=== PATIENT | female | born 1990 | race Hispanic/Latino ===

== ENCOUNTER 2019-09-14 10:43 | Outpatient (CLI) | payer MEDICAID ==
--- NOTE | 2019-09-14 11:50 | ULT ---
Complete obstetrical ultrasound INDICATION: Evaluate anatomy TECHNIQUE: Grayscale, M-mode Doppler and Doppler images were obtained of the abdomen and pelvis to ev aluate the patient's known . COMPARISON: None. FINDINGS: Number of gestations: Single. Presentation: Cephalic. Placental location: Anterior Previa: No evidence for previa. Cervical length: 4.74 cm OLMAN: Not recorded.. Within normal limits. heart rate: 135 bpm. Biparietal diameter: 4.60cm, 20 weeks 0 days, Not calculated.. Head circumference: 16.82 cm, 19 weeks and 4 days, Not calculated. Abdominal circumference: 13.98 cm, 19 weeks and 3 days, Not calculated. Femoral length: 2.96cm, 19 weeks and 1 day, Not calculated. Estimated weight: 285 g +/- 42g 0 lbs. 10 oz. +/- 1 ounce, 4th percentile SURVEY: head: Normal appearing. Cerebellum: Normal appearing. Cisterna magna: Normal appearing. Lateral ventricles: Normal appearing. 4 chamber heart: Normal appearing.. Stomach: Normal appearing. Kidneys: Normal appearing. Cord insertion: Normal appearing. Bladder: Not well seen Spine: Normal appearing. Lips and nose: Normal appearing. Extremities: Normal appearing. Three-vessel CORD: Normal appearing. The average gestational age by ultrasound is 19 weeks and 4 dayswith estimated due date of January [id number]. The estimated dates by clinical data is 20 weeks and 4 dayswith estimated due date of January 27 0. IMPRESSION: 1. Single live intrauterine gestation with size and dates as above. 2. Slightly low estimated weight for gestational age. Continued follow-up is recommended. 3. The bladder was not well seen. A follow-up obstetrical ultrasound in one to 2 weeks is recommended to complete survey.
== END 2019-09-14 10:44 | disposition home or self-care (01) ==
LOC: BICULT 10:43
PROVIDERS: ATTEND Family Medicine
DX: Z34.82 Encounter for supervision of other normal pregnancy, second trimester (principal); Z3A.20 20 weeks gestation of pregnancy
CPT/HCPCS: 76805

== ENCOUNTER 2020-01-28 11:48 | Outpatient (CLI) | payer OTHER ==
[2020-01-29 15:05] LABS: SARS-CoV-2 MS2 Positive; SARS-CoV-2 N Gene Negative; SARS-CoV-2 S Gene Negative; SARS-CoV-2 by NAA Not Detected (NotDetected); SARS-CoV-2 orf1ab Negative
== END 2020-01-28 11:49 | disposition home or self-care (01) ==
LOC: LABBT 11:48
PROVIDERS: ATTEND Family Medicine
DX: Z20.828 Contact with and (suspected) exposure to other viral communicable diseases (principal)
CPT/HCPCS: 87635; U0003

== ENCOUNTER 2020-01-31 19:30 | Inpatient (IN) | payer OTHER ==
[~2020-01-31 19:30] MED LIST: Bupivacaine 0.25% 10 ML VIAL ONE
[2020-01-31 22:13] VITALS: BMI 33.4
[2020-01-31] MEDS ORDERED: hydrALAZINE 20 MG/ML VIAL SLOW IVP PRN (22:14)
[2020-01-31] MEDS ORDERED: Butorphanol Tartrate 1 MG/ML VIAL SLOW IVP PRN (22:14)
[2020-01-31] MEDS ORDERED: Misoprostol 200 MCG TAB PR PRN (22:14)
[2020-01-31] MEDS ORDERED: Promethazine HCl 25 MG/ML VIAL IM PRN (22:14)
[2020-01-31] MEDS ORDERED: Ibuprofen 800 MG TAB PO PRN (22:14)
[2020-01-31] MEDS ORDERED: NS / Oxytocin 40 units/1000ml 1,000 ML IV PRN (22:14)
[2020-01-31] MEDS ORDERED: Diphenoxylate HCl/Atropine Tablet PO PRN (22:14)
[2020-01-31] MEDS ORDERED: Ondansetron PF 4 MG/2 ML Vial IVP PRN (22:14)
[2020-01-31] MEDS ORDERED: Carboprost 250 MCG/ML AMP IM PRN (22:14)
[2020-01-31] MEDS ORDERED: Lidocaine 1% (PF) 30 ML VIAL SC PRN (22:14)
[2020-01-31] MEDS ORDERED: Methylergonovine 0.2 MG/ML VIAL IM PRN (22:14)
[2020-01-31] MEDS ORDERED: HYDROcodone/Acetaminophen 5/325 mg Tablet PO PRN (22:14)
[2020-01-31] MEDS: Lactated Ringer's 1,000 ML IV SCH (22:20)
[2020-01-31] MEDS ORDERED: Penicillin G Potassium 5 MILL.UNITS in Sodium Chloride 0.9% 100 ML IVPB SCH (22:30)
[2020-01-31] MEDS ORDERED: NS w/ Oxytocin 10 units 500 ML IV SCH ×2 (22:30)
[2020-01-31] MEDS: Misoprostol 100 MCG TAB PO SCH (22:40)
[2020-01-31 23:01] LABS: Hemoglobin 14.6 g/dL (12.0-16.0); Mean Corpuscular HGB CONC 34.1 g/dL (32.0-36.0); Mean Corpuscular Hemoglobin 31.5 pg (27.0-31.0); Mean Corpuscular Volume 92.5 fL (78.0-98.0); Mean Platelet Volume 8.7 fL (7.4-10.4); Platelet Count 200 thou/uL (130-400); RBC Distribution Width 13.3 % (11.5-14.5); Red Blood Cell (RBC) Count 4.62 mill/uL (4.20-5.40); White Blood Cell (WBC) Count 8.5 thou/uL (4.8-10.8)
[2020-01-31 23:36] LABS: HBSAg Index 0.17 S/CO (0-0.99); Hep B Surf Ag Non-Reactive S/CO (NonReactive); Syphilis Antibody Nonreactive (Nonreactive); Syphilis Antibody Index 0.06 S/CO (<1.00 Non-Reactive)
[2020-02-01] MEDS: Misoprostol 100 MCG TAB PO SCH ×3 (02:00→11:19)
[2020-02-01] MEDS: Penicillin G 2.5 MILL.units 2.5 MILL.UNITS in Premix Bag 1 BAG IVPB SCH ×2 (03:12→19:14)
[2020-02-01] MEDS ORDERED: Fentanyl 4 mcg/Bup 0.1% Cadd 100 ML ONE (05:51)
[2020-02-01] MEDS: Lactated Ringer's 1,000 ML IV SCH (06:21)
[2020-02-01] MEDS ORDERED: NS / Oxytocin 40 units/1000ml 1,000 ML ONE (06:53)
[2020-02-01] MEDS ORDERED: Lidocaine 1% (PF) 30 ML VIAL ONE (06:53)
[2020-02-01] MEDS ORDERED: diphenhydrAMINE 50 MG/ML VIAL IVP PRN (07:05)
[2020-02-01] MEDS ORDERED: Promethazine HCl 25 MG/ML VIAL IM PRN (07:05)
[2020-02-01] MEDS ORDERED: Naloxone HCl 0.4 mg/ml Vial IVP PRN ×2 (07:05)
[2020-02-01] MEDS ORDERED: Ondansetron PF 4 MG/2 ML Vial IVP PRN ×2 (07:05→10:25)
[2020-02-01] MEDS ORDERED: Acetaminophen 325 MG TAB PO PRN (07:05)
[2020-02-01] MEDS ORDERED: Lactated Ringer's 500 ML IV PRN (07:05)
[2020-02-01] MEDS ORDERED: EPHEDRINE 25 MG/5 ML SYRINGE SLOW IVP PRN (07:05)
[2020-02-01] MEDS ORDERED: NS w/ Oxytocin 10 units 0 ML ONE (07:13)
[2020-02-01] MEDS ORDERED: Communication Order-Pharmacy FS SCH (07:15)
[2020-02-01] MEDS ORDERED: Fentanyl 4 mcg/Bupivacaine 0.1% Cassette 100 ML EPIDURAL SCH (07:15)
[2020-02-01] MEDS ORDERED: NS / Oxytocin 40 units/1000ml 1,000 ML IV SCH (10:25)
[2020-02-01] MEDS ORDERED: hydrALAZINE 20 MG/ML VIAL SLOW IVP PRN (10:25)
[2020-02-01] MEDS ORDERED: diphenhydrAMINE 25 MG CAP PO PRN (10:25)
[2020-02-01] MEDS ORDERED: Benzocaine-Menthol 82.5 ML CAN TOP PRN (10:25)
[2020-02-01] MEDS ORDERED: Bisacodyl 10 MG SUPP PR PRN (10:25)
[2020-02-01] MEDS ORDERED: HYDROcodone/Acetaminophen 5/325 mg Tablet PO PRN (10:25)
[2020-02-01] MEDS ORDERED: Lanolin Ointment 7 GM TUBE TOP PRN (10:25)
[2020-02-01] MEDS ORDERED: Milk Of Magnesia 30 ML UDCUP PO PRN (10:25)
[2020-02-01] MEDS ORDERED: Ferrous Sulfate 325 MG TAB PO SCH (10:45)
[2020-02-01] MEDS ORDERED: Prenatal Vitamin 1 TAB PO SCH (11:00)
[2020-02-01] MEDS ORDERED: Docusate Calcium (SURFAK) 240 MG CAP PO SCH (11:00)
[2020-02-01] MEDS: Ferrous Sulfate 325 MG TAB PO SCH (11:21)
[2020-02-01] MEDS ORDERED: Adacel (T-DAP) 0.5 ML SYRINGE IM ONE (12:00)
[2020-02-01] MEDS: Ibuprofen 800 MG TAB PO SCH ×2 (14:51→21:21)
[2020-02-01] MEDS: HYDROcodone/Acetaminophen 5/325 mg Tablet PO PRN (14:52)
[2020-02-01] MEDS: Docusate Calcium (SURFAK) 240 MG CAP PO SCH (21:21)
[2020-02-02] MEDS: Ibuprofen 800 MG TAB PO SCH ×3 (05:29→21:01)
[2020-02-02] MEDS: Prenatal Vitamin 1 TAB PO SCH (08:50)
[2020-02-02] MEDS: Docusate Calcium (SURFAK) 240 MG CAP PO SCH ×2 (08:50→19:37)
[2020-02-02] MEDS: Ferrous Sulfate 325 MG TAB PO SCH ×2 (08:51→14:15)
[2020-02-03] MEDS: Ibuprofen 800 MG TAB PO SCH (05:04)
[2020-02-03 08:05] VITALS: BP 102/55; TEMP 97.7
[2020-02-03] MEDS: Prenatal Vitamin 1 TAB PO SCH (08:37)
[2020-02-03] MEDS: HYDROcodone/Acetaminophen 5/325 mg Tablet PO PRN (08:38)
[2020-02-03] MEDS: Docusate Calcium (SURFAK) 240 MG CAP PO SCH (08:39)
== END 2020-02-03 18:00 | disposition home or self-care (01) | DRG 807 ==
LOC: L&D 21:42 → 3SW 02-01 10:39
PROVIDERS: ADMIT Family Medicine; ATTEND Family Medicine
PROC: 10E0XZZ Delivery of Products of Conception, External Approach (ICD-10-PCS; principal; 2020-02-01)
PROC: 0HQ9XZZ Repair Perineum Skin, External Approach (ICD-10-PCS; 2020-02-01)
DX: O48.0 Post-term pregnancy (principal); Z37.0 Single live birth; Z3A.40 40 weeks gestation of pregnancy; O70.0 First degree perineal laceration during delivery; Z20.828 Contact with and (suspected) exposure to other viral communicable diseases
CPT/HCPCS: 36415; 85027; 86780; 86850; 86900; 86901; 87340; 90715; J0595; J2405; S0020